=== PATIENT | female | born 1970 | race Caucasian/White ===

== ENCOUNTER → 2017-09-16 | Outpatient (CLI) | payer OTHER ==
--- NOTE | 2017-09-16 16:08 | KCIC ---
MRI Brain without contrast History: Left arm and facial numbness, bilateral leg numbness, left ear pain Technique: Multiplanar, multisequential noncontrast MR imaging was performed of the brain. Contrast: None Comparison: None Findings: There is no evidence of an acute infarct or cytotoxic edema. The ventricles, sulci, and cisterns are within normal limits in size and configuration. There is no significant midline shift, mass effect, or focal abnormal extra-axial fluid collection. There is small focus of T2 and FLAIR hypertense signal right frontal deep white matter. There is no significant hemosiderin deposition of the brain parenchyma. There is preservation of the major intracranial flow-voids at the skull base. The mastoid air cells are aerated. The cerebellar tonsils are normal in location. There is no significant abnormality of the pineal gland or pituitary gland. Paranasal sinuses are overall aerated. There is preserved marrow signal of the clivus. There is nonspecific increased CSF signal the optic nerve sheaths bilaterally. Impression: 1. Other than a small focus of likely nonspecific gliosis right white matter, there is no significant intracranial abnormality. Electronically signed by: Lucian Osborn MD (09/16/2017 4:05 PM) [id number]
== END | disposition home or self-care (01) ==
LOC: KCIC MRI 15:14
PROVIDERS: ATTEND Nurse Practitioner Family
DX: H92.02 Otalgia, left ear (principal); R20.0 Anesthesia of skin
CPT/HCPCS: 70551

== ENCOUNTER → 2017-09-30 | Outpatient (CLI) | payer OTHER ==
--- NOTE | 2017-09-30 15:33 | KCIC ---
EXAM: Cervical spine, flexion and extension. HISTORY: Neck pain and extremity numbness. COMPARISON: None. FINDINGS: Frontal, lateral, flexion and extension, bilateral oblique and odontoid views of the cervical spine are obtained. There is no listhesis. There is no abnormal motion between flexion and extension. The vertebral bodies are normal in height and the disc spaces are preserved. There is mild development total anterior wedging of the anterosuperior endplate at C5. There is no fracture. The prevertebral soft tissues are unremarkable. IMPRESSION: No acute osseous finding. Electronically signed by: Valentina Mc MD (09/30/2017 3:29 PM) [id number]
== END | disposition home or self-care (01) ==
LOC: KCIC 14:31
PROVIDERS: ATTEND Chiropractor
DX: M54.2 Cervicalgia (principal); R20.0 Anesthesia of skin
CPT/HCPCS: 72052

== ENCOUNTER → 2017-10-10 | Outpatient (CLI) | payer OTHER ==
--- NOTE | 2017-10-10 09:20 | KCIC ---
MRI Cervical Spine Without Contrast History: Left arm and facial numbness, bilateral leg numbness, pain at base of skull Technique: Multiplanar, multi sequential noncontrast MR imaging was performed of the cervical spine. Comparison: None Findings: Cervical vertebral body stature and AP alignment are adequate. There is a focus of marrow signal abnormality of the C4 vertebral body variably hyperintense on all sequences probably due to underlying hemangioma, up to approximately 0.8 cm in size. Cervical cord caliber is within normal limits without focal signal abnormality. There is very mild reversal of the lordotic curvature centered at C4-5. There is mild degenerative disc disease at C4-5, mild disc desiccation at more superior levels. There is minimal anterior spondylolisthesis C4-5. C2-C3: Neural foramina and spinal canal are adequate. C3-C4: Neural foramina and spinal canal are adequate. C4-C5: Neural foramina and spinal canal are adequate. There is negligible bulge. C5-C6: Spinal canal and neural foramina are adequate. C6-C7: Spinal canal and neural foramina are adequate. C7-T1: Neural foramina and spinal canal are adequate. Impression: 1. There is very mild degenerative disc disease C4-5, also negligible anterior spondylolisthesis C4-5. There is no significant cervical spinal stenosis or neural foramina compromise. Mild reversal of the lordotic curvature centered at C4-5 is nonspecific although could be associated with spasm. 2. There is focus of marrow signal abnormality of the C4 vertebral body, hemangioma favored. Electronically signed by: Lucian Osborn MD (10/10/2017 9:17 AM) [facility]-[id number]
== END | disposition home or self-care (01) ==
LOC: KCIC MRI 08:30
PROVIDERS: ATTEND Chiropractor
DX: M50.321 Other cervical disc degeneration at C4-C5 level (principal); M43.12 Spondylolisthesis, cervical region; D18.09 Hemangioma of other sites
CPT/HCPCS: 72141

== ENCOUNTER → 2021-06-25 | Outpatient (CLI) | payer OTHER ==
[2021-02-16 11:52] VITALS: BP 145/75
[~2021-06-25] MED LIST: ACET325T21 PO; ASCO500T4 PO; CALC500T30 PO; DEXA6TAB6 PO; DOXY100T PO; FERR236T2 PO; MERC50TA PO; MULT-245 PO; PRED-220 PO; WARF10TA40 PO; ZINC220C5 PO
--- NOTE | 2021-06-25 17:01 | KCIC ---
Bilateral digital screening mammograms: Reason for examination: Routine screening. Comparison is made to previous study dated 03/04/2016. Interpretation was made with the benefit of CAD. The skin and nipples show no abnormalities. No abnormal axillary lymph nodes are seen. The breast par enchyma is heterogeneously dense. (Breast density: Category C.) There are no dominant masses, suspici ous calcifications or architectural distortion. There appear to be small intramammary lymph nodes pre sent. Benign appearing calcifications are present. Impression: No evidence of malignancy. Recommend routine screening. Your patient's mammogram demonstrates that she has dense breast tissue (breast density category C or D), which could hide abnormalities, and if she has other risk factors for breast cancer that have bee n identified, she might benefit from supplemental screening tests that may be suggested by you as her ordering physician. Dense breast tissue, in and of itself, is a relatively common condition. Therefo re, this information is not provided to cause undue concern, but rather to raise your awareness and t o promote discussion with your patient regarding the presence of other risk factors, in addition to d ense breast tissue. Your patient's mammography results will be sent to her. BI-RAD Category 2: Benign. "Our facility is accredited by the [employer] Mammography Program." This patient's information has been entered into a reminder system for the patient to be notified wit h the results of her examination and a target date for the next mammogram. Electronically signed by: Sabina Grewal MD (06/25/2021 4:58 PM) [id number]
== END ==
LOC: KCIC MAMMO 15:50
PROVIDERS: ATTEND Family Medicine
DX: Z12.31 Encounter for screening mammogram for malignant neoplasm of breast (principal)
CPT/HCPCS: 77067

== ENCOUNTER → 2021-09-02 | Outpatient (CLI) | payer OTHER ==
[2021-02-16 11:52] VITALS: BP 145/75
[2021-09-02 13:04] LABS: BASO % 1 % (0-3); EOS # 0.1 x10^3/uL (0.0-0.7); EOS % 3 % (0-3); HEMATOCRIT 38.7 % (36.0-47.0); HEMOGLOBIN 12.6 g/dL (12.0-15.5); LYMPH # 1.2 x10^3/uL (1.0-4.8); LYMPH % 23 % (24-48); MEAN CORPUSCULAR HEMOGLOBIN 30 pg (25-35); MEAN CORPUSCULAR HGB CONC 33 g/dL (31-37); MEAN CORPUSCULAR VOLUME 92 fL (79-100); MONO # 0.4 x10^3/uL (0.0-1.1); MONO % 8 % (0-9); NEUT # 3.4 x10^3/uL (1.8-7.7); NEUT % 66 % (31-73); PLATELET COUNT 287 x10^3/uL (140-400); RED BLOOD COUNT 4.18 x10^6/uL (3.50-5.40); RED CELL DISTRIBUTION WIDTH 16.3 % (11.5-14.5); WHITE BLOOD COUNT 5.2 x10^3/uL (4.0-11.0)
[2021-09-02 13:25] LABS: CALCIUM 8.7 mg/dL (8.5-10.1); CREATININE 0.7 mg/dL (0.6-1.0); GFR 88.6; POTASSIUM 4.1 mmol/L (3.5-5.1)
[2021-09-02 13:27] LABS: ALBUMIN 3.3 g/dL (3.4-5.0); ALBUMIN/GLOBULIN RATIO 0.8 (1.0-1.7); TOTAL BILIRUBIN 0.3 mg/dL (0.2-1.0); TOTAL PROTEIN 7.3 g/dL (6.4-8.2)
[2021-09-03 13:40] LABS: COMMENT IMMUNOFIX SERUM Note: (.); IMMUNOGLOBULIN A 649 mg/dL (87-352); IMMUNOGLOBULIN G 736 mg/dL (586-1602); IMMUNOGLOBULIN M 52 mg/dL (26-217); KAPPA LAMBDA RATIO 0.37 (0.26-1.65); LAMBDA FREE 49.1 mg/L (5.7-26.3)
[2021-09-03 14:11] LABS: ALBUM 3.6 g/dL (2.9-4.4); ALPHA 1 0.3 g/dL (0.0-0.4); ALPHA 2 0.7 g/dL (0.4-1.0); BETA 1.1 g/dL (0.7-1.3); GAMMA 1.1 g/dL (0.4-1.8); PROTEIN TOTAL 6.8 g/dL (6.0-8.5); SPEP AG RATIO 1.1 (0.7-1.7)
== END ==
LOC: ONCLAB 12:43
PROVIDERS: ATTEND Internal Medicine Hematology & Oncology
DX: R76.9 Abnormal immunological finding in serum, unspecified (principal)
CPT/HCPCS: 36415; 80053; 82784; 83520; 84165; 85025; 86334

== ENCOUNTER → 2021-09-18 | Outpatient (CLI) | payer OTHER ==
[2021-02-16 11:52] VITALS: BP 145/75
== END ==
LOC: ONCLAB 11:39
PROVIDERS: ATTEND Internal Medicine Hematology & Oncology
DX: D47.2 Monoclonal gammopathy (principal)
CPT/HCPCS: 81240; 81241; 85300; 85302; 85306; 85610; 86146; 86147